=== PATIENT | male | born 1955 | race African-American/Black ===

== ENCOUNTER 2024-11-11 21:10 | Emergency (ER) | payer OTHER ==
[2024-11-11] MEDS ORDERED: SODIUM CHL 0.9% 1000 ML BAG IV ONE (21:11)
[2024-11-11] MEDS ORDERED: DOPAMINE 400 MG/250 ML D5W PREMIX IV ONE (21:11)
[2024-11-11] MEDS ORDERED: EPINEPHrine 1 MG/10 ML SYR IV ONE (21:11)
[2024-11-11] MEDS ORDERED: Calcium Chloride 10% INJ SYR IV ONE (21:11)
[2024-11-11] MEDS ORDERED: D5W 250 ML BAG IV ONE (21:11)
[2024-11-11] MEDS ORDERED: NOREPINEPHRINE BITARTRATE/D5W 4 MG/250 ML KIT IV ONE (21:27)
[2024-11-11] MEDS ORDERED: NA CHLORIDE 0.9% 1,000 ML ONE ×2 (21:37→23:48)
[2024-11-11] MEDS ORDERED: EPINEPHRINE 1 MG/ML VIAL ONE (21:45)
[2024-11-11] MEDS ORDERED: NA CHLORIDE 0.9% 250 ML ONE (21:45)
[2024-11-11] MEDS ORDERED: SODIUM BICARB 50 MEQ/50ML VIAL ONE (22:00)
[2024-11-11] MEDS ORDERED: D5W 1,000 ML IV ONE (22:01)
[2024-11-11] MEDS ORDERED: INSULIN REGULAR (HUMAN) 100 UNIT/ML ONE ×2 (22:02→23:59)
[2024-11-11 22:11] LABS: Absolute Basophils 0.1 K/uL (0-0.5); Absolute Monocytes 0.7 K/uL (0.1-1.3); Hemoglobin 14.9 g/dL (13.6-17.9)
[2024-11-11] MEDS ORDERED: Phenylephrine HCl 10 MG/ML 1 ML VIAL ONE (22:16)
[2024-11-11 22:21] LABS: Absolute Eosinophils 0.1 K/uL (0-0.5); Absolute Lymphocytes (CBC) 3.1 K/uL (0.7-4.9); Absolute Neutrophil 8.1 K/uL (1.8-8.0); Basophils % 0.8 % (0-1.3); Eosinophils % 0.5 % (0-4.4); Hematocrit 47.7 % (39.6-49.0); Lymphocytes % 25.4 % (15.3-44.8); MCH 30.3 pg (27.0-35.0); MCHC 31.2 g/dL (32.0-36.0); MCV 97.1 fL (80-100); MPV 10.7 fL (7.6-11.3); Monocytes % 5.5 % (3.3-12.3); Neutrophils % 67.8 % (41.7-73.7); Nucleated RBC Absolute Count 0.1 (0-0); Nucleated Red Blood Cells % 0.8 % (0-0); Platelets 189 thou/uL (152-406); RBC Red Blood Cell Count 4.91 M/uL (4.33-5.43); Red Cell Distribution Width 14.2 % (12.1-15.2)
[2024-11-11 22:26] LABS: Blood O2 Saturation 78.9 % (92-98.5)
--- NOTE | 2024-11-11 22:26 | RAD REPORT ---
Procedure: Chest Single View HISTORY: Intubation FINDINGS: Endotracheal tube with its tip at the level of the aortic arch. Nasogastric tube is coiled within the gastric fundus. The tip lies near the junction of the gastric f undus and body. It is approximately 4 cm from the GE junction
[2024-11-11 22:27] LABS: PT Prothrombin Time 10.8 SECONDS (9.4-12.5); PTT, Activated Partial Thromb 35.6 SECONDS (24.3-36.9); Protime INR 1.03
[2024-11-11 22:27] LABS: Blood Gas Oxyhemoglobin 77.6 % (94-97); Blood Gas THB 13.4 g/dl (12-18)
[2024-11-11 22:29] LABS: Anion Gap 25.2 mEq/L (5.0-15.0); Potassium 4.2 mEq/L (3.5-5.1); Troponin High Sensitivity 27.7 pg/mL (<58.9)
[2024-11-11] MEDS ORDERED: HYDROCORTISONE SUC 100 MG INJ ONE (22:46)
[2024-11-11] MEDS ORDERED: FAMOTIDINE 20 MG/2 ML VIAL IV ONE (22:47)
[2024-11-11 22:48] LABS: Blood Morphology Comment NOTED (NOT SEEN); Platelet Estimate ADEQ; Polychromasia SLIGHT; White Blood Cell Scan OK (OK)
[2024-11-11 23:41] LABS: SARS-CoV-2 Antigen CONTROL BLUE LINE VIS/BG OK; SARS-CoV-2 Antigen Rapid Res Negative (Negative)
--- NOTE | 2024-11-11 23:58 | EDPHYS ---
Physician Documentation [facility] Name: Joel Walter Age: 69 yrs Sex: Male : 1955 Arrival Date: 11/11/2024 Time: 21:10 Bed 2 Private MD: ED Physician Alek Carlton HPI: 11/11 23:21 This 69 yrs old Black Male presents to ER via EMS with complaints of CPR. jessica 23:21 Preceding the arrest, the patient collapsed. The arrest occurred at home. Pre-hospital jessica course: The arrest was not witnessed by others. Historical: - Allergies: 21:26 No Known Allergies; ha1 - PMHx: 21:26 Diabetes - NIDDM; High Cholesterol; Hypertension; ha1 - Immunization history:: Adult Immunizations unknown. - Infectious Disease History:: unconscious . - Social history:: Smoking status: unknown. ROS: 23:35 Unable to obtain ROS due to patient is on ventilator, sp cpr, jessica Exam: 23:35 Head/Face: Normocephalic, atraumatic. jessica 23:35 Eyes: Pupils: dilated, bilaterally, 23:45 Chest/axilla: Inspection: normal, jessica 23:45 Cardiovascular: Rate: actual rate is 89 bpm, Rhythm: regular, Edema: is not appreciated, JVD: is not appreciated, 23:45 ECG was reviewed by the Attending Physician. Vital Signs: 21:15 BP 52 / 32; Pulse 76; Resp 30; al5 21:19 BP 56 / 31; Pulse 95; Resp 42; Pulse Ox 86% on jhony tube; al5 21:31 Weight 158.76 kg; sa1 21:37 BP 75 / 37; Pulse 89; Resp 18; Temp 100.7(Ca); Pulse Ox 98% on ETT vent; FiO2 100 %; br2 21:50 BP 58 / 33; Pulse 51; Resp 18; Temp 100.9(Ca); Pulse Ox 98% on ETT vent; FiO2 100 %; br2 21:55 BP 65 / 40; Pulse 83; Resp 18; Temp 100.5(Ca); Pulse Ox 100% on ETT vent; FiO2 100 %; br2 22:00 BP 65 / 16; Pulse 91; Resp 18; Temp 100(Ca); Pulse Ox 100% on ETT vent; FiO2 100 %; br2 22:05 BP 76 / 29; Pulse 92; Resp 18; Temp 99.6(Ca); Pulse Ox 100% on ETT vent; FiO2 100 %; br2 22:10 BP 78 / 33; Pulse 92; Resp 16; Temp 99.3(Ca); Pulse Ox 100% on ETT vent; FiO2 100 %; br2 22:15 BP 78 / 32; Pulse 91; Resp 18; Temp 99(Ca); Pulse Ox 100% on ETT vent; FiO2 100 %; br2 22:20 BP 78 / 34; Pulse 91; Resp 18; Temp 98.8(Ca); Pulse Ox 100% on ETT vent; FiO2 100 %; br2 22:25 BP 81 / 36; Pulse 89; Resp 18; Temp 98.6(Ca); Pulse Ox 100% on ETT vent; FiO2 100 %; br2 22:30 BP 83 / 37; Pulse 87; Resp 18; Temp 98.4(Ca); Pulse Ox 100% on ETT vent; FiO2 100 %; br2 22:35 BP 81 / 36; Pulse 86; Resp 18; Temp 98.3(Ca); Pulse Ox 100% on ETT vent; FiO2 100 %; br2 22:40 BP 82 / 37; Pulse 85; Resp 18; Temp 98.2(Ca); Pulse Ox 100% on ETT vent; FiO2 100 %; br2 22:45 BP 83 / 48; Pulse 82; Resp 18; Temp 98.1(Ca); Pulse Ox 100% on ETT vent; FiO2 100 %; br2 22:50 BP 79 / 36; Pulse 84; Resp 18; Temp 98(Ca); Pulse Ox 100% on ETT vent; FiO2 100 %; br2 22:55 BP 83 / 38; Pulse 84; Resp 18; Temp 97.9(Ca); Pulse Ox 100% on ETT vent; FiO2 100 %; br2 23:00 BP 81 / 37; Pulse 84; Resp 18; Temp 97.9(Ca); Pulse Ox 100% on ETT vent; FiO2 100 %; br2 23:05 BP 80 / 37; Pulse 85; Resp 18; Temp 97.8(Ca); Pulse Ox 100% on ETT vent; FiO2 100 %; br2 23:10 BP 80 / 37; Pulse 84; Resp 18; Temp 97.8(Ca); Pulse Ox 100% on ETT vent; FiO2 100 %; br2 23:15 BP 79 / 34; Pulse 83; Resp 18; Temp 97.8(Ca); Pulse Ox 100% on ETT vent; FiO2 100 %; br2 23:20 BP 77 / 35; Pulse 82; Resp 18; Temp 97.7(Ca); Pulse Ox 100% on ETT vent; FiO2 100 %; br2 23:25 BP 76 / 36; Pulse 82; Resp 18; Temp 97.7(Ca); Pulse Ox 100% on ETT vent; FiO2 100 %; br2 23:30 BP 83 / 48; Pulse 101; Resp 18; Temp 97.7(Ca); Pulse Ox 100% on ETT vent; FiO2 100 %; br2 23:35 BP 83 / 47; Pulse 98; Resp 18; Temp 97.6(Ca); Pulse Ox 100% on ETT vent; FiO2 100 %; br2 23:40 BP 79 / 47; Pulse 98; Resp 18; Temp 97.6(Ca); Pulse Ox 100% on ETT vent; FiO2 100 %; br2 23:45 BP 72 / 38; Pulse 99; Resp 18; Temp 97.6(Ca); Pulse Ox 100% on ETT vent; FiO2 100 %; br2 23:50 BP 69 / 48; Pulse 98; Resp 18; Temp 97.6(Ca); Pulse Ox 100% on ETT vent; FiO2 100 %; br2 23:55 BP 68 / 48; Pulse 100; Resp 18; Temp 97.6(Ca); Pulse Ox 100% on ETT vent; FiO2 100 %; br2 11/12 00:00 BP 60 / 34; Pulse 98; Resp 18; Temp 97.6(Ca); Pulse Ox 100% on ETT vent; FiO2 100 %; al5 00:05 BP 59 / 30; Pulse 105; Resp 18; Temp 97.6(Ca); Pulse Ox 100% on ETT vent; FiO2 100 %; al5 00:10 BP 64 / 51; Pulse 108; Resp 18; Temp 97.6(Ca); Pulse Ox 99% on ETT vent; FiO2 100 %; al5 00:15 BP 69 / 40; Pulse 108; Resp 18; Temp 97.6(Ca); Pulse Ox 99% on ETT vent; FiO2 100 %; al5 00:20 BP 70 / 32; Pulse 108; Resp 18; Temp 97.5(Ca); Pulse Ox 99% on ETT vent; FiO2 100 %; al5 00:25 BP 67 / 36; Pulse 111; Resp 18; Temp 97.4(Ca); Pulse Ox 99% on ETT vent; FiO2 100 %; al5 00:30 BP 67 / 32; Pulse 108; Resp 18; Temp 97.4(Ca); Pulse Ox 99% on ETT vent; FiO2 100 %; al5 00:35 BP 67 / 39; Pulse 107; Resp 18; Temp 97.3(Ca); Pulse Ox 100% on ETT vent; FiO2 100 %; al5 00:40 BP 66 / 52; Pulse 110; Resp 18; Temp 97.3(Ca); Pulse Ox 99% on ETT vent; FiO2 100 %; al5 00:45 BP 68 / 50; Pulse 108; Resp 18; Temp 97.2(Ca); Pulse Ox 99% on ETT vent; FiO2 100 %; al5 00:50 BP 68 / 38; Pulse 107; Resp 18; Temp 97.2(Ca); Pulse Ox 100% on ETT vent; FiO2 100 %; al5 00:55 BP 66 / 35; Pulse 108; Resp 18; Temp 97.1(Ca); Pulse Ox 99% on ETT vent; FiO2 100 %; al5 01:00 BP 66 / 40; Pulse 107; Resp 18; Temp 97.1(Ca); Pulse Ox 99% on ETT vent; FiO2 100 %; al5 01:05 BP 68 / 37; Pulse 106; Resp 18; Temp 97(Ca); Pulse Ox 100% on ETT vent; FiO2 100 %; al5 01:10 BP 61 / 38; Pulse 106; Resp 18; Temp 97(Ca); Pulse Ox 100% on ETT vent; FiO2 100 %; al5 01:15 BP 75 / 41; Pulse 106; Resp 18; Temp 97(Ca); Pulse Ox 99% on ETT vent; FiO2 100 %; al5 01:20 BP 73 / 40; Pulse 105; Resp 18; Temp 97(Ca); Pulse Ox 99% on ETT vent; FiO2 100 %; al5 01:25 BP 77 / 43; Pulse 103; Resp 18; Temp 96.9(Ca); Pulse Ox 99% on ETT vent; FiO2 100 %; al5 01:30 BP 72 / 43; Pulse 102; Resp 18; Temp 96.9(Ca); Pulse Ox 99% on ETT vent; FiO2 100 %; al5 01:35 BP 72 / 43; Pulse 101; Resp 18; Temp 96.9(Ca); Pulse Ox 100% on ETT vent; FiO2 100 %; al5 01:40 BP 74 / 43; Pulse 100; Resp 18; Temp 96.9(Ca); Pulse Ox 99% on ETT vent; FiO2 100 %; al5 01:45 BP 75 / 40; Pulse 102; Resp 18; Temp 97(Ca); Pulse Ox 100% on ETT vent; FiO2 100 %; al5 MDM: 11/11 21:54 Medical Screening Exam initiated [facility] 23:53 Differential diagnosis: arrythmia, cardiac arrest, respiratory arrest, traumatic jessica injury, overdose, asphyxiation, renal failure. Data reviewed: vital signs, nurses notes, EMS record, lab test result(s), EKG, radiologic studies, plain films. Consideration of Admission/Observation Escalation of care including admission/observation considered. I considered the following discharge prescriptions or medication management in the emergency department Medications were administered in the Emergency Department. See MAR. Independent interpretation of the following test(s) in the Emergency Department EKG: See my EKG interpretation above. Test considered but Not performed: Ultrasound no abd usg. Historians other than the Patient: EMS: ems well informed. Care significantly affected by the following chronic conditions: Diabetes, Hypertension, Obesity, high cholesterol. Counseling: I had a detailed discussion with the patient and/or guardian regarding the historical points, exam findings, and any diagnostic results supporting the discharge/admit diagnosis, lab results, radiology results, the need to transfer to another facility, for higher level of care, [facility] does not immediately have the required specialist. 11/12 00:06 Post IV fluid administration reassessment for Sepsis: Client prescribed 30 mL/kg IVF. [facility] Sepsis focused reassessment complete. 11/11 21:39 Order name: Glucose, Ancillary Testing; Complete Time: 22:30 EDMS 11/11 21:50 Order name: Basic Metabolic Panel; Complete Time: 22:56 11/11 21:50 Order name: CBC with Diff; Complete Time: 22:56 11/11 21:50 Order name: Troponin HS; Complete Time: 22:56 11/11 21:50 Order name: Blood Culture Adult (2) 11/11 21:50 Order name: Lactate w/ 2H reflex if indic.; Complete Time: 22:56 11/11 21:50 Order name: Protime (+inr); Complete Time: 22:30 11/11 21:50 Order name: Ptt, Activated; Complete Time: 22:30 11/11 21:50 Order name: ABG 11/11 21:58 Order name: SARS RAPID; Complete Time: 01:07 [facility] 11/11 21:58 Order name: Flu; Complete Time: : [facility] 11/11 22:41 Order name: Ghost Lactate-NO COLLECT Timer; Complete Time: 01:07 [facility] 11/11 22:46 Order name: CBC Smear Scan; Complete Time: 22:56 [facility] 11/11 23:21 Order name: Glucose; Complete Time: 01:07 [facility] 11/12 00:20 Order name: Glucose, Ancillary Testing; Complete Time: 01:07 [facility] 11/12 00:48 Order name: ABG [facility] 11/12 01:41 Order name: Glucose, Ancillary Testing [facility] 11/12 02:04 Order name: Lactate Sepsis 2 HR Follow-up [facility] 11/12 02:26 Order name: Glucose, Ancillary Testing [facility] 11/11 21:50 Order name: XRAY Chest (1 view); Complete Time: 22:30 11/11 21:50 Order name: Cardiac monitoring; Complete Time: 23:16 11/11 21:50 Order name: EKG - Nurse/Tech; Complete Time: 22:19 11/11 21:50 Order name: IV Saline Lock; Complete Time: 23:16 11/11 21:50 Order name: Labs collected and sent; Complete Time: 22:19 11/11 21:50 Order name: O2 Per Protocol; Complete Time: 22:19 11/11 21:50 Order name: O2 Sat Monitoring; Complete Time: 22:19 11/11 21:50 Order name: Accucheck; Complete Time: 22:19 11/11 21:50 Order name: Cath; Complete Time: 23:16 11/11 21:50 Order name: IV Saline Lock - Large Bore; Complete Time: 23:16 11/11 21:50 Order name: Vital Signs; Complete Time: 23:16 11/11 21:58 Order name: Central Line Kit; Complete Time: 22:24 jessica EC/24 23:45 Rate is 102 beats/min. Rhythm is regular. QRS [place] is Normal. [place] interval is normal. jessica QRS interval is normal. QT interval is normal. No Q waves. T waves are Normal. No ST changes noted. Clinical impression: NSR w/ Non-specific ST/T Changes and No evidence of ischemia. Interpreted by me. Reviewed by me. Administered Medications: 11/12 00:47 Discontinued: Insulin Drip - (insulin regular human ivp 100 units, ns 0.9% 100 ml) IV jessica at 5 units/hr continuous; Standard concentration 1unit/ml; Dose for DKA is 0.1 units/kg/hr 11/11 21:17 Drug: NS 0.9% IV (30 ml/kg) 30 ml/kg IV at bolus once; Sepsis Protocol; to be given as ha1 a bolus over 90 minutes Route: IV; Rate: bolus; Site: right antecubital; 11/12 03:16 Follow up: Response: No adverse reaction; IV Status: Completed infusion; IV Intake: al5 4000ml 11/11 21:17 Drug: EPINEPHrine 0.1mg/mL 1:10,000 1 mg IVP once Route: IVP; Site: right antecubital; [facility] 11/12 03:07 Follow up: Response: No adverse reaction 11/11 21:18 Drug: Sodium Bicarbonate 1 amp IVP once; (50 mL); equals 50 mEq Route: IVP; Site: right [facility] antecubital; 11/12 03:07 Follow up: Response: No adverse reaction 11/11 21:21 Drug: EPINEPHrine 0.1mg/mL 1:10,000 1 mg IVP once Route: IVP; Site: right antecubital; [facility] 11/12 03:07 Follow up: Response: No adverse reaction 11/11 21:30 Drug: Norepinephrine IV 0.1 mcg/kg/min IV at calculated rate See Administration ha1 Instructions; (Standard concentration 4 mg / 250 mL D5W); Recommended max rate 3 mcg/kg/min; Titrate 0.05 mcg/kg/min as often as every 5 minutes to achieve goal (see titration policy); Goal parameter MAP greater than 65 mmHg. Route: IV; Rate: calculated rate; Site: right femoral; 11/12 03:15 Follow up: Response: No adverse reaction; IV Status: Infusion continued upon transfer 11/11 21:41 Drug: EPINEPHrine 0.1mg/mL 1:10,000 1 mg IVP once Route: IVP; Site: right femoral; 11/12 03:06 Follow up: Response: No adverse reaction 11/11 21:42 Drug: Calcium Chloride IVP 1 grams IVP once Route: IVP; Site: right antecubital; 11/12 03:06 Follow up: Response: No adverse reaction 11/11 21:58 Drug: DOPamine IV (400mg/250mL Premix) 5 mcg/kg/min IV at calculated rate See ha1 Administration Instructions; Recommended max rate 20 mcg/kg/min; Titrate 2.5 mcg/kg/min as often as every 5 minutes to achieve goal (see titration policy); Goal parameter MAP greater than 65 mmHg. [*Low doses 1 to 4 mcg/kg/min may result in hypotension, decreased SVR*] Route: IV; Rate: calculated rate; Site: right femoral; 11/12 03:09 Follow up: Response: No adverse reaction 03:10 Follow up: IV Status: Infusion continued upon transfer 11/11 21:59 Drug: Sodium Bicarbonate IVP 1 amp IVP once; (50 mL); equals 50 mEq Route: IVP; Site: [facility] right femoral11/12 03:14 Follow up: Response: No adverse reaction 11/11 21:59 Drug: Sodium Bicarbonate IVP 1 amp IVP once; (50 mL); equals 50 mEq Route: IVP; Site: [facility] right femoral; 11/12 03:14 Follow up: Response: No adverse reaction 11/11 21:59 Drug: Sodium Bicarbonate 1 amp IVP once; (50 mL); equals 50 mEq Route: IVP; Site: right [address] [place] [address]; 11/12 03:06 Follow up: Response: No adverse reaction 11/11 22:05 Drug: D5W IV 1000 ml, Sodium Bicarbonate IVP 150 mEq IV at 125 ml/hr continuous Route: al5 IV; Rate: 125 ml/hr; Site: right antecubital; 11/12 03:10 Follow up: Response: No adverse reaction; IV Status: Infusion continued upon transfer 11/11 22:05 Drug: Sodium Bicarbonate 1 amp IVP once; (50 mL); equals 50 mEq Route: IVP; Site: right ha1 femoral; 11/12 03:06 Follow up: Response: No adverse reaction 11/11 22:06 Drug: Insulin Regular Human IVP 10 units IVP once {Co-Signature: ha1 (Dione Aragon RN).} Route: IVP; Site: right antecubital; 11/12 03:15 Follow up: Response: No adverse reaction; No change in condition 11/11 22:24 Drug: Phenylephrine IV 0.5 mcg/kg/min IV at calculated rate See Administration al5 Instructions; (Standard concentration 50 mg / 250 mL D5W); Recommended max rate 5 mcg/kg/min; Max rate for cardiogenic shock 10 mcg/kg/min; Titrate 0.1 mcg/kg/min as often as q5 minutes to achieve goal (see titration policy); Goal parameter MAP greater than 65 mmHg. Route: IV; Rate: calculated rate; Site: right femoral; 22:26 Follow up: Response: No adverse reaction; Blood pressure is unchanged; Rate change 2 al5 mcg/kg/min 22:40 Follow up: Response: No adverse reaction; Blood pressure is unchanged; Rate change 3 al5 mcg/kg/min 23:00 Follow up: Response: No adverse reaction; Blood pressure is unchanged; Rate change 5 al5 mcg/kg/min 11/12 03:08 Follow up: Response: No adverse reaction; IV Status: Infusion continued upon transfer 11/11 22:51 Drug: Famotidine IVP 40 mg IVP once; dilute with 10 mL 0.9% NaCl; give over 2 minutes al5 Route: IVP; Site: left antecubital; 11/12 00:43 Follow up: Response: No adverse reaction 11/11 22:51 Drug: Solu-CORTEF IVP 100 mg IVP once Route: IVP; Site: left antecubital; al5 11/12 00:43 Follow up: Response: No adverse reaction al5 00:16 Drug: Insulin Drip - (Insulin Regular Human IVP 100 units, NS 0.9% IV 100 ml) IV at 5 al5 units/hr continuous; Standard concentration 1unit/ml; Dose for DKA is 0.1 units/kg/hr {Co-Signature: br2 (Letha Trammell RN).} Route: IV; Rate: 5 units/hr; Site: right femoral; 03:08 Follow up: Response: No adverse reaction; IV Status: Order to discontinue infusion al5 00:54 Drug: Insulin Drip - (Insulin Regular Human IVP 100 units, NS 0.9% IV 100 ml) IV at 7 al5 units/hr continuous; Standard concentration 1unit/ml; Dose for DKA is 0.1 units/kg/hr {Co-Signature: br2 (Letha Trammell RN).} Route: IV; Rate: 7 units/hr; Site: right femoral; 03:08 Follow up: Response: No adverse reaction; IV Status: Infusion continued upon transfer al5 01:24 Not Given (Duplicate Order): insulin regular human10 units IVP once al5 01:46 Drug: Albumin IVPB 25 grams 100 ml IVPB once; (Note: Albumin 25% concentration) Volume: al5 100 ml; Route: IVPB; Site: left antecubital; 02:40 Follow up: Response: No adverse reaction; IV Status: Completed infusion; IV Intake: al5 100ml 01:57 Drug: NS 0.9% IV 1000 ml IV at 1000 ml once; to be given as a bolus over 60 minutes ha1 Route: IV; Rate: 1000 ml; Site: right antecubital; 03:07 Follow up: Response: No adverse reaction; IV Status: Completed infusion; IV Intake: al5 1000ml 03:15 Not Given (Physician Discretion): piperacillin-tazobactam3.375 grams IVPB once over 60 al5 mins; (mix in NS 100 mL) Disposition Summary: 11/11/24 23:58 Transfer Ordered Notes: Transfer Location: [facility] jessica Reason: Higher level of care jessica Condition: Critical jessica Problem: new jessica Symptoms: have improved jessica Accepting Physician: to [facility](11/12/24 03:35) ha1 Diagnosis - Acute respiratory failure with hypoxia - intubated jessica - Acute respiratory failure with hypercapnia jessica - Acute kidney failure, unspecified jessica - Type 2 diabetes mellitus with ketoacidosis with coma jessica - Morbid (severe) obesity with alveolar hypoventilation jessica - Elevated white blood cell count, unspecified jessica - Acidosis jessica - Severe sepsis with septic shock jessica - Hypotension, unspecified jessica Forms: - Medication Reconciliation Form jessica - SBAR form jessica Signatures: Dispatcher [employer] EDRoshni Burleson, RN Alek Iverson MD MD cha Ayala, Heidy RN RN ha1 Soraida Gandhi RN RN al5 Dione Aragon RN ha1 Letha Trammell RN br2 Corrections: (The following items were deleted from the chart) 11/11 21:51 21:50 BASIC METABOLIC PANEL+C.LAB.BRZ ordered. EDMS EDMS 21:51 21:50 CBC+H.LAB.BRZ ordered. EDMS EDMS 21:51 21:50 Troponin High Sensitivity+C.LAB.BRZ ordered. EDMS EDMS 21:51 21:50 BLOOD CULTURE*+BA.LAB.BRZ ordered. EDMS EDMS 21:51 21:50 LACTATE+C.LAB.BRZ ordered. EDMS EDMS 21:51 21:50 PROTIME (+INR)+COAG.LAB.BRZ ordered. EDMS EDMS 21:51 21:50 PTT, ACTIVATED+COAG.LAB.BRZ ordered. EDMS EDMS 21:51 21:50 Urinalysis+U.LAB.BRZ ordered. EDMS EDMS 21:51 21:51 Chest Single View+RAD.RAD.BRZ ordered. EDMS EDMS 11/12 00:01 11/11 21:56 Head C Spine Cap Wo Con+CT.RAD.BRZ ordered. EDMS EDMS 11/12 00:07 11/11 23:58 to [facility] jessica jessica 11/12 00:49 00:07 to [facility] jessica jessica 01:31 00:00 Chest Abd Pelvis Wo Con ordered. EDMS EDMS 01:41 00:49 to [facility] jessica jessica 02:49 00:01 Head C Spine Mpr Wo Con ordered. EDMS EDMS 02:49 01:31 Chest Abd Pelvis Wo Con ordered. EDMS EDMS 03:35 01:41 to [facility] ha1
--- NOTE | 2024-11-11 23:58 | ER ---
Nurse's Notes [facility] Name: Joel Walter Age: 69 yrs Sex: Male : 1955 Arrival Date: 11/11/2024 Time: 21:10 Bed 2 Private MD: Diagnosis: Acute respiratory failure with hypoxia-intubated;Acute respiratory failure with hypercapnia;Acute kidney failure, unspecified;Type 2 diabetes mellitus with ketoacidosis with coma;Morbid (severe) obesity with alveolar hypoventilation;Elevated white blood cell count, unspecified;Acidosis;Severe sepsis with septic shock;Hypotension, unspecified Presentation: 11/11 21:10 Chief complaint: EMS states: Was taking a shower and went unconscious. On arrival ha1 asystole, no pulse. Chest compression started. 21:15 Compressions began prior to arrival. ha1 21:15 Care prior to arrival: Assisted ventilation, Oral intubation, CPR manually. ha1 21:26 Method Of Arrival: EMS: [facility] ha1 21:26 Coronavirus screen: At this time, unable to obtain information related to travel ha1 outside the [place] Ebola Screen: No symptoms or risks identified at this time. Initial Sepsis Screen: Does the patient meet any 2 criteria? Temp <36.0*C (96.8*F)) or > 38.3*C (100.9*F). Systolic BP < 90 mmHg. Yes Does the patient have a suspected source of infection? No. Patient's initial sepsis screen is negative. Risk Assessment: Do you want to hurt yourself or someone else? Unable to obtain. Onset of symptoms was November 11, 2024. 21:26 Acuity: JOSHUA 1 ha1 Triage Assessment: 21:26 General: Appears Behavior is unresponsive. Pain: Unable to use pain scale. FLACC scale ha1 score is 0 out of 10. Neuro: Level of Consciousness is unresponsive, Oriented to none. Cardiovascular: Capillary refill is > 3 seconds Rhythm is PEA. Respiratory: Airway via oral intubation Ventilator assessment:. GI: Abdomen is round obese. Historical: - Allergies: : No Known Allergies; ha1 - PMHx: :26 Diabetes - NIDDM; High Cholesterol; Hypertension; ha1 - Immunization history:: Adult Immunizations unknown. - Infectious Disease History:: unconscious . - Social history:: Smoking status: unknown. Screenin/25 02:02 [facility] ED Fall Risk Assessment (Adult). Abuse screen: Denies threats or abuse. Denies ha1 injuries from another. Nutritional screening: No deficits noted. Tuberculosis screening: No symptoms or risk factors identified. 02:56 [facility] ED Fall Risk Assessment (Adult) History of falling in the last 3 months, br2 including since admission Yes- physiologic fall (2 pts) Confusion or Disorientation No (0 pts) Intoxicated or Sedated No (0 pts) Impaired Gait Yes (1 pt) Mobility Assist Device Used Yes (1 pt) Altered Elimination Yes (1 pt) Score/Fall Risk Level 3 or more points = High Risk Oriented to surroundings, Maintained a safe environment, Hourly rounding (assess needs \T\ fall precautionary measures) done. Assessment: 11/11 21:15 CPR assessment: unresponsive, pupils fixed \T\ dilated, no respiratory effort, intubated, ha1 mechanical ventilation, pulses absent w/ compressions. Cardiac rhythm is asystole. Neuro: Level of Consciousness is unresponsive. Cardiovascular: Rhythm is asystole. Respiratory: Airway via oral intubation. 21:15 General: CPR CONTINUE . ha1 21:19 Reassessment: PULSE CHECK. Cardiovascular: Pulses are palpable in left carotid pulse ha1 Rhythm is ventricular tachycardia. 21:22 Reassessment: PULSE CHECK. PEA. CPR STARTED. ha1 21:23 Reassessment: calcium chloride given IVP at this time. al5 21:24 Cardiovascular: Pulses are palpable in left carotid pulse Rhythm is ventricular ha1 tachycardia. 21:30 General: Appears obese, Behavior is unresponsive. Pain: Unable to use pain scale. al5 Patient is unresponsive. Neuro: Level of Consciousness is unresponsive, Oriented to none Pupils are Pupil Size: 5mm fixed, dilated, non-reactive. Cardiovascular: Heart tones S1 S2 Patient's skin is warm and dry. Rhythm is sinus tachycardia. Respiratory: Airway via oral intubation Respiratory effort is even, Respiratory pattern is regular, symmetrical, Ventilator assessment: ET Tube: 7.5 26 cm at teeth Tidal Volume: 500 Respiratory Rate: 18 FiO2: 100%. PEEP: 5 Breath sounds are clear bilaterally. GI: Abdomen is obese, : No signs and/or symptoms were reported regarding the genitourinary system. EENT: No signs and/or symptoms were reported regarding the EENT system. Derm: Skin is intact, is healthy with good turgor, Skin is normal. Musculoskeletal: No signs and/or symptoms reported regarding the musculoskeletal system. 21:41 : 16 Fr. temperature probe todd catheter to gravity drainage with no urinary output. al5 22:00 Reassessment: No changes from previously documented assessment. al5 22:00 Respiratory: Airway via oral intubation Respiratory effort is even, Respiratory pattern al5 is regular, symmetrical, Breath sounds are clear bilaterally. 23:00 Reassessment: No changes from previously documented assessment. al5 23:00 Respiratory: Airway via oral intubation Respiratory effort is even, Respiratory pattern al5 is regular, symmetrical, Breath sounds are clear bilaterally. 11/12 00:00 Reassessment: No changes from previously documented assessment. Respiratory: Airway via al5 oral intubation Respiratory effort is even, Respiratory pattern is regular, symmetrical, Breath sounds are clear bilaterally. 01: Reassessment: No changes from previously documented assessment. Respiratory: Airway via al5 oral intubation Respiratory effort is even, Respiratory pattern is regular, symmetrical, Breath sounds are clear bilaterally. 01:49 Reassessment: life flight arrived for transport for patient to [facility]. 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 Vital Signs: 11/11 21:15 BP 52 / 32; Pulse 76; Resp 30; al5 21:19 BP 56 / 31; Pulse 95; Resp 42; Pulse Ox 86% on jhony tube; al5 21:31 Weight 158.76 kg; sa1 21:37 BP 75 / 37; Pulse 89; Resp 18; Temp 100.7(Ca); Pulse Ox 98% on ETT vent; FiO2 100 %; br2 21:50 BP 58 / 33; Pulse 51; Resp 18; Temp 100.9(Ca); Pulse Ox 98% on ETT vent; FiO2 100 %; br2 21:55 BP 65 / 40; Pulse 83; Resp 18; Temp 100.5(Ca); Pulse Ox 100% on ETT vent; FiO2 100 %; br2 22:00 BP 65 / 16; Pulse 91; Resp 18; Temp 100(Ca); Pulse Ox 100% on ETT vent; FiO2 100 %; br2 22:05 BP 76 / 29; Pulse 92; Resp 18; Temp 99.6(Ca); Pulse Ox 100% on ETT vent; FiO2 100 %; br2 22:10 BP 78 / 33; Pulse 92; Resp 16; Temp 99.3(Ca); Pulse Ox 100% on ETT vent; FiO2 100 %; br2 22:15 BP 78 / 32; Pulse 91; Resp 18; Temp 99(Ca); Pulse Ox 100% on ETT vent; FiO2 100 %; br2 22:20 BP 78 / 34; Pulse 91; Resp 18; Temp 98.8(Ca); Pulse Ox 100% on ETT vent; FiO2 100 %; br2 22:25 BP 81 / 36; Pulse 89; Resp 18; Temp 98.6(Ca); Pulse Ox 100% on ETT vent; FiO2 100 %; br2 22:30 BP 83 / 37; Pulse 87; Resp 18; Temp 98.4(Ca); Pulse Ox 100% on ETT vent; FiO2 100 %; br2 22:35 BP 81 / 36; Pulse 86; Resp 18; Temp 98.3(Ca); Pulse Ox 100% on ETT vent; FiO2 100 %; br2 22:40 BP 82 / 37; Pulse 85; Resp 18; Temp 98.2(Ca); Pulse Ox 100% on ETT vent; FiO2 100 %; br2 22:45 BP 83 / 48; Pulse 82; Resp 18; Temp 98.1(Ca); Pulse Ox 100% on ETT vent; FiO2 100 %; br2 22:50 BP 79 / 36; Pulse 84; Resp 18; Temp 98(Ca); Pulse Ox 100% on ETT vent; FiO2 100 %; br2 22:55 BP 83 / 38; Pulse 84; Resp 18; Temp 97.9(Ca); Pulse Ox 100% on ETT vent; FiO2 100 %; br2 23:00 BP 81 / 37; Pulse 84; Resp 18; Temp 97.9(Ca); Pulse Ox 100% on ETT vent; FiO2 100 %; br2 23:05 BP 80 / 37; Pulse 85; Resp 18; Temp 97.8(Ca); Pulse Ox 100% on ETT vent; FiO2 100 %; br2 23:10 BP 80 / 37; Pulse 84; Resp 18; Temp 97.8(Ca); Pulse Ox 100% on ETT vent; FiO2 100 %; br2 23:15 BP 79 / 34; Pulse 83; Resp 18; Temp 97.8(Ca); Pulse Ox 100% on ETT vent; FiO2 100 %; br2 23:20 BP 77 / 35; Pulse 82; Resp 18; Temp 97.7(Ca); Pulse Ox 100% on ETT vent; FiO2 100 %; br2 23:25 BP 76 / 36; Pulse 82; Resp 18; Temp 97.7(Ca); Pulse Ox 100% on ETT vent; FiO2 100 %; br2 23:30 BP 83 / 48; Pulse 101; Resp 18; Temp 97.7(Ca); Pulse Ox 100% on ETT vent; FiO2 100 %; br2 23:35 BP 83 / 47; Pulse 98; Resp 18; Temp 97.6(Ca); Pulse Ox 100% on ETT vent; FiO2 100 %; br2 23:40 BP 79 / 47; Pulse 98; Resp 18; Temp 97.6(Ca); Pulse Ox 100% on ETT vent; FiO2 100 %; br2 23:45 BP 72 / 38; Pulse 99; Resp 18; Temp 97.6(Ca); Pulse Ox 100% on ETT vent; FiO2 100 %; br2 23:50 BP 69 / 48; Pulse 98; Resp 18; Temp 97.6(Ca); Pulse Ox 100% on ETT vent; FiO2 100 %; br2 23:55 BP 68 / 48; Pulse 100; Resp 18; Temp 97.6(Ca); Pulse Ox 100% on ETT vent; FiO2 100 %; br2 11/12 00:00 BP 60 / 34; Pulse 98; Resp 18; Temp 97.6(Ca); Pulse Ox 100% on ETT vent; FiO2 100 %; al5 00:05 BP 59 / 30; Pulse 105; Resp 18; Temp 97.6(Ca); Pulse Ox 100% on ETT vent; FiO2 100 %; al5 00:10 BP 64 / 51; Pulse 108; Resp 18; Temp 97.6(Ca); Pulse Ox 99% on ETT vent; FiO2 100 %; al5 00:15 BP 69 / 40; Pulse 108; Resp 18; Temp 97.6(Ca); Pulse Ox 99% on ETT vent; FiO2 100 %; al5 00:20 BP 70 / 32; Pulse 108; Resp 18; Temp 97.5(Ca); Pulse Ox 99% on ETT vent; FiO2 100 %; al5 00:25 BP 67 / 36; Pulse 111; Resp 18; Temp 97.4(Ca); Pulse Ox 99% on ETT vent; FiO2 100 %; al5 00:30 BP 67 / 32; Pulse 108; Resp 18; Temp 97.4(Ca); Pulse Ox 99% on ETT vent; FiO2 100 %; al5 00:35 BP 67 / 39; Pulse 107; Resp 18; Temp 97.3(Ca); Pulse Ox 100% on ETT vent; FiO2 100 %; al5 00:40 BP 66 / 52; Pulse 110; Resp 18; Temp 97.3(Ca); Pulse Ox 99% on ETT vent; FiO2 100 %; al5 00:45 BP 68 / 50; Pulse 108; Resp 18; Temp 97.2(Ca); Pulse Ox 99% on ETT vent; FiO2 100 %; al5 00:50 BP 68 / 38; Pulse 107; Resp 18; Temp 97.2(Ca); Pulse Ox 100% on ETT vent; FiO2 100 %; al5 00:55 BP 66 / 35; Pulse 108; Resp 18; Temp 97.1(Ca); Pulse Ox 99% on ETT vent; FiO2 100 %; al5 01:00 BP 66 / 40; Pulse 107; Resp 18; Temp 97.1(Ca); Pulse Ox 99% on ETT vent; FiO2 100 %; al5 01:05 BP 68 / 37; Pulse 106; Resp 18; Temp 97(Ca); Pulse Ox 100% on ETT vent; FiO2 100 %; al5 01:10 BP 61 / 38; Pulse 106; Resp 18; Temp 97(Ca); Pulse Ox 100% on ETT vent; FiO2 100 %; al5 01:15 BP 75 / 41; Pulse 106; Resp 18; Temp 97(Ca); Pulse Ox 99% on ETT vent; FiO2 100 %; al5 01:20 BP 73 / 40; Pulse 105; Resp 18; Temp 97(Ca); Pulse Ox 99% on ETT vent; FiO2 100 %; al5 01:25 BP 77 / 43; Pulse 103; Resp 18; Temp 96.9(Ca); Pulse Ox 99% on ETT vent; FiO2 100 %; al5 01:30 BP 72 / 43; Pulse 102; Resp 18; Temp 96.9(Ca); Pulse Ox 99% on ETT vent; FiO2 100 %; al5 01:35 BP 72 / 43; Pulse 101; Resp 18; Temp 96.9(Ca); Pulse Ox 100% on ETT vent; FiO2 100 %; al5 01:40 BP 74 / 43; Pulse 100; Resp 18; Temp 96.9(Ca); Pulse Ox 99% on ETT vent; FiO2 100 %; al5 01:45 BP 75 / 40; Pulse 102; Resp 18; Temp 97(Ca); Pulse Ox 100% on ETT vent; FiO2 100 %; al5 ED Course: 11/11 21:15 Client placed on continuous cardiac and pulse oximetry monitoring. NIBP monitoring ha1 applied. nurse monitoring on. 21:15 Patient has correct armband on for positive identification. Placed in gown. Bed in low ha1 position. Call light in reach. Side rails up X 1. 21:16 Inserted saline lock: 18 gauge antecubital area, using aseptic technique. Flushed with ha1 10 mL NS. 21:17 Patient has correct armband on for positive identification. Fall risk band placed. Bed ha1 in low position. Call light in reach. Side rails up X2. 21:26 Patient arrived in ED. ha1 21:30 Assisted provider with central line placement. Set up central line tray. Triple lumen ha1 line placed in right femoral. Line placed by Alek Carlton MD Placement verified by blood return, Dressed with Tape, Tegaderm, Blood was collected. Patient tolerated well. Time-out/Briefing performed prior to start of procedure? Yes. Was handwashing/sanitizing done immediately prior to procedure? Yes. Was patient positioned to in a way to prevent air embolism? Yes. Was procedure site sterilized? Yes, with chlorhexidine. Was the site allowed to dry? Yes. Was local anesthetic and/or sedation utilized? Yes. During the procedure, did the Practitioner(s) maintain a sterile field? Yes. Was blood aspirated from each lumen? Yes. 21:30 Assisted provider with intubation using 7.5 mm ETT via oral route. ET tube secured at ha1 26cm at the teeth. Set up intubation tray. Intubated by Alek Carlton MD Placement verified by CO2 detector w/ + color change, auscultating bilateral breath sounds, End-tidal CO2 montioring CXR, Patient tolerated well. 21:35 Inserted saline lock: 18 gauge in left forearm, using aseptic technique. Blood ha1 collected. Flushed with 10 mL NS. 21:40 One-on-one care X 15 minutes. ha1 21:40 Todd cath inserted, using sterile technique, 16 Fr., by ED staff, balloon inflated, to ha1 gravity drainage, Patient tolerated well. 21:54 Alek Carlton MD is Attending Physician. jessica 22:00 One-on-one care X 30 minutes. ha1 22:20 Radiology exam delayed due to pt was being worked on. az 22:23 XRAY Chest (1 view) In Process Unspecified. EDMS 22:30 One-on-one care X 30 minutes. ha1 22:38 Notified ED physician of a critical lab result(s). Blood glucose 454 Lactic acid 22.2. kl 23:13 Triage completed. ha1 23:17 Soraida Gandhi, RN is Primary Nurse. al5 23:30 One-on-one care X 30 minutes. ha1 23:35 called [facility] for Transfer. sp 11/12 00:00 Provided Education on: EDUCATION WAS PROVIDED TO FAMILY MEMBERS ON THE PLAN OF CARE . ha1 00:44 0044 [facility] called to deny transfer no ICU beds at any location. sp 00:56 called [facility] for Transfer. sp 00:56 called [facility] for transfer. sp 01:10 Dr. England at [facility] accepted transfer. ICU 8B bed 830. Report #[id number]. Admin sp approval at 0139 by Reta Villavicencio. 01:16 [facility] accepted pt. sp 02:40 One-on-one care X 360 minutes. al5 02:43 Patient transferred, IV remains in place. ha1 Administered Medications: 00:47 Discontinued: Insulin Drip - (insulin regular human ivp 100 units, ns 0.9% 100 ml) IV jessica at 5 units/hr continuous; Standard concentration 1unit/ml; Dose for DKA is 0.1 units/kg/hr 11/11 21:17 Drug: NS 0.9% IV (30 ml/kg) 30 ml/kg IV at bolus once; Sepsis Protocol; to be given as ha1 a bolus over 90 minutes Route: IV; Rate: bolus; Site: right antecubital; 11/12 03:16 Follow up: Response: No adverse reaction; IV Status: Completed infusion; IV Intake: al5 4000ml 11/11 21:17 Drug: EPINEPHrine 0.1mg/mL 1:10,000 1 mg IVP once Route: IVP; Site: right antecubital; [facility] 11/12 03:07 Follow up: Response: No adverse reaction mn11/11 21:18 Drug: Sodium Bicarbonate 1 amp IVP once; (50 mL); equals 50 mEq Route: IVP; Site: right [facility] antecubital; 11/12 03:07 Follow up: Response: No adverse reaction 11/11 21:21 Drug: EPINEPHrine 0.1mg/mL 1:10,000 1 mg IVP once Route: IVP; Site: right antecubital; [facility] 11/12 03:07 Follow up: Response: No adverse reaction [facility] 11/11 21:30 Drug: Norepinephrine IV 0.1 mcg/kg/min IV at calculated rate See Administration ha1 Instructions; (Standard concentration 4 mg / 250 mL D5W); Recommended max rate 3 mcg/kg/min; Titrate 0.05 mcg/kg/min as often as every 5 minutes to achieve goal (see titration policy); Goal parameter MAP greater than 65 mmHg. Route: IV; Rate: calculated rate; Site: right femoral; 11/12 03:15 Follow up: Response: No adverse reaction; IV Status: Infusion continued upon transfer 11/11 21:41 Drug: EPINEPHrine 0.1mg/mL 1:10,000 1 mg IVP once Route: IVP; Site: right femoral; [facility] 11/12 03:06 Follow up: Response: No adverse reaction 11/11 21:42 Drug: Calcium Chloride IVP 1 grams IVP once Route: IVP; Site: right antecubital; [facility] 11/12 03:06 Follow up: Response: No adverse reaction 11/11 21:58 Drug: DOPamine IV (400mg/250mL Premix) 5 mcg/kg/min IV at calculated rate See ha1 Administration Instructions; Recommended max rate 20 mcg/kg/min; Titrate 2.5 mcg/kg/min as often as every 5 minutes to achieve goal (see titration policy); Goal parameter MAP greater than 65 mmHg. [*Low doses 1 to 4 mcg/kg/min may result in hypotension, decreased SVR*] Route: IV; Rate: calculated rate; Site: right femoral; 11/12 03:09 Follow up: Response: No adverse reaction 03:10 Follow up: IV Status: Infusion continued upon transfer 11/11 21:59 Drug: Sodium Bicarbonate IVP 1 amp IVP once; (50 mL); equals 50 mEq Route: IVP; Site: al right femoral; 11/12 03:14 Follow up: Response: No adverse reaction mn11/11 21:59 Drug: Sodium Bicarbonate IVP 1 amp IVP once; (50 mL); equals 50 mEq Route: IVP; Site: [facility] right femoral; 11/12 03:14 Follow up: Response: No adverse reaction mn11/11 21:59 Drug: Sodium Bicarbonate 1 amp IVP once; (50 mL); equals 50 mEq Route: IVP; Site: right ha femoral; 11/12 03:06 Follow up: Response: No adverse reaction mn11/11 22:05 Drug: D5W IV 1000 ml, Sodium Bicarbonate IVP 150 mEq IV at 125 ml/hr continuous Route: al5 IV; Rate: 125 ml/hr; Site: right antecubital; 11/12 03:10 Follow up: Response: No adverse reaction; IV Status: Infusion continued upon transfer 11/11 22:05 Drug: Sodium Bicarbonate 1 amp IVP once; (50 mL); equals 50 mEq Route: IVP; Site: right ha femoral; 11/12 03:06 Follow up: Response: No adverse reaction 11/11 22:06 Drug: Insulin Regular Human IVP 10 units IVP once {Co-Signature: ha1 (Dione Aragon RN).} Route: IVP; Site: right antecubital; 11/12 03:15 Follow up: Response: No adverse reaction; No change in condition 11/11 22:24 Drug: Phenylephrine IV 0.5 mcg/kg/min IV at calculated rate See Administration al5 Instructions; (Standard concentration 50 mg / 250 mL D5W); Recommended max rate 5 mcg/kg/min; Max rate for cardiogenic shock 10 mcg/kg/min; Titrate 0.1 mcg/kg/min as often as q5 minutes to achieve goal (see titration policy); Goal parameter MAP greater than 65 mmHg. Route: IV; Rate: calculated rate; Site: right femoral; 22:26 Follow up: Response: No adverse reaction; Blood pressure is unchanged; Rate change 2 al5 mcg/kg/min 22:40 Follow up: Response: No adverse reaction; Blood pressure is unchanged; Rate change 3 al5 mcg/kg/min 23:00 Follow up: Response: No adverse reaction; Blood pressure is unchanged; Rate change 5 al5 mcg/kg/min 11/12 03:08 Follow up: Response: No adverse reaction; IV Status: Infusion continued upon transfer 11/11 22:51 Drug: Famotidine IVP 40 mg IVP once; dilute with 10 mL 0.9% NaCl; give over 2 minutes al5 Route: IVP; Site: left antecubital; 11/12 00:43 Follow up: Response: No adverse reaction 11/11 22:51 Drug: Solu-CORTEF IVP 100 mg IVP once Route: IVP; Site: left antecubital; 11/12 00:43 Follow up: Response: No adverse reaction al5 00:16 Drug: Insulin Drip - (Insulin Regular Human IVP 100 units, NS 0.9% IV 100 ml) IV at 5 al5 units/hr continuous; Standard concentration 1unit/ml; Dose for DKA is 0.1 units/kg/hr {Co-Signature: br2 (Letha Trammell RN).} Route: IV; Rate: 5 units/hr; Site: right femoral; 03:08 Follow up: Response: No adverse reaction; IV Status: Order to discontinue infusion al5 00:54 Drug: Insulin Drip - (Insulin Regular Human IVP 100 units, NS 0.9% IV 100 ml) IV at 7 al5 units/hr continuous; Standard concentration 1unit/ml; Dose for DKA is 0.1 units/kg/hr {Co-Signature: br2 (Letha Trammell RN).} Route: IV; Rate: 7 units/hr; Site: right femoral; 03:08 Follow up: Response: No adverse reaction; IV Status: Infusion continued upon transfer al5 01:24 Not Given (Duplicate Order): insulin regular human10 units IVP once al5 01:46 Drug: Albumin IVPB 25 grams 100 ml IVPB once; (Note: Albumin 25% concentration) Volume: al5 100 ml; Route: IVPB; Site: left antecubital; 02:40 Follow up: Response: No adverse reaction; IV Status: Completed infusion; IV Intake: al5 100ml 01:57 Drug: NS 0.9% IV 1000 ml IV at 1000 ml once; to be given as a bolus over 60 minutes ha1 Route: IV; Rate: 1000 ml; Site: right antecubital; 03:07 Follow up: Response: No adverse reaction; IV Status: Completed infusion; IV Intake: al5 1000ml 03:15 Not Given (Physician Discretion): piperacillin-tazobactam3.375 grams IVPB once over 60 al5 mins; (mix in NS 100 mL) Medication: 02:57 VIS not applicable for this client. br2 Intake: 02:40 IV: 100ml; Total: 100ml. al5 03:07 IV: 1000ml; Total: 1100ml. al5 03:16 IV: 4000ml; Total: 5100ml. al5 Output: 11/11 22:00 Urine: 0ml; Gastric: 150ml (NGT); Total: 150ml. al5 11/12 00:00 Urine: 0ml; Gastric: 50ml (NGT); Total: 200ml. al5 01:49 Urine: 0ml; Gastric: 50ml (NGT); Total: 250ml. al5 Outcome: 11/11 21:24 Outcome Resuscitation successful ha1 23:58 ER care complete, transfer ordered by . jessica 11/12 02:35 Transferred by helicopter to [facility], Transfer form ha1 completed. X-rays sent w/ patient. 02:45 critical ha1 03:35 Patient left the ED. ha1 Signatures: Dispatcher [employer] EDMS Roshni Gutiérrez RN RN kl Anderson, Corey, MD MD cha Pinkerton, Shawna sp Zavala, Araceli az Ayala, Heidy, RN RN ha1 Soraida Gandhi RN RN al5 Sultan Yael sa1 Letha Trammell RN RN br2 Dione Aragon RN 1 Letha Trammell RN br2 Corrections: (The following items were deleted from the chart) 00:42 11/11 22:05 D5W IV 1000 ml, Sodium Bicarbonate IVP 150 mEq IV at 125 ml/hr in right al5 femoral al5 11/12 00:45 11/11 21:15 EPINEPHrine 1:10,000 IVP 1:10,000 1 [facility] 02:[facility] 11/11 21:30 Assisted provider with intubation using 7.5 mm ETT via oral route. ET tube 1 secured at 25cm at the teeth. Set up intubation tray. Intubated by Alke Carlton MD Placement verified by CO2 detector w/ + color change, auscultating bilateral breath sounds, End-tidal CO2 montioring CXR, Patient tolerated well. 11/12 02:21 11/11 21:26 CPR assessment: unresponsive, pupils fixed \T\ dilated, no respiratory [facility] effort, intubated, mechanical ventilation, pulses absent w/ compressions, [facility] 11/12 02:21 11/11 21:26 Cardiac rhythm is asystole [place] [id number] 11/12 02:21 11/11 21:26 Neuro: Level of Consciousness is unresponsive, [place] [id number] 11/12 02:21 11/11 21:26 Cardiovascular: Rhythm is asystole [place] [id number] 11/12 02:21 11/11 21:26 Respiratory: Airway via oral intubation [place] [id number] 11/12 02:25 11/11 21:19 Cardiovascular: Rhythm is ventricular tachycardia [place] [id number] 11/12 02:42 11/11 21:19 Cardiovascular: Rhythm is ventricular tachycardia [place] [id number] 11/12 02:56 11/11 21:37 BP 75 / 37; Pulse 89bpm; Resp 18bpm; Pulse Ox 98% ET / Ventilator FiO2 br2 100%; al5 11/12 02:58 11/11 21:24 Reassessment: PULSE CHECK [place] [id number] 11/12 03:05 11/11 21:24 Reassessment: PULSE CHECK sinus tach [place] [id number] 11/12 03:05 11/11 21:30 General: Appears obese, Behavior is unresponsive. [place] [id number] 11/12 03:05 11/11 21:30 Pain: Unable to use pain scale. Patient is unresponsive. br2 br2 11/12 03:11/11 21:30 Neuro: Level of Consciousness is unresponsive, Oriented to none Pupils are br2 Pupil Size: 5mm fixed, dilated, br2 11/12 02:11/11 21:30 Cardiovascular: Heart tones S1 S2 present Patient's skin is warm and dry. br2 Rhythm is sinus tachycardia br2 11/12 02:11/11 21:30 Respiratory: Airway via oral intubation Respiratory effort is even, br2 Respiratory pattern is symmetrical, Ventilator assessment: ET Tube: 7.0 7.5 26 cm at teeth Tidal Volume: 500 Respiratory Rate: 18 FiO2: 100%. PEEP: 5 Breath sounds are clear bilaterally. br2 11/12 02:11/11 21:30 GI: Abdomen is obese, Bowel sounds present X 4 quads. br2 br2 11/12 02:11/11 21:30 : No signs and/or symptoms were reported regarding the genitourinary br2 system. br2 11/12 02:11/11 21:30 EENT: No signs and/or symptoms were reported regarding the EENT system. br2 2 11/12 03:11/11 21:30 Derm: Skin is intact, is healthy with good turgor, Skin is normal, br2 br2 11/12 02:11/11 21:30 Musculoskeletal: No signs and/or symptoms reported regarding the br2 musculoskeletal system. br2 11/12 03:11/11 21:41 : temperature probe todd to gravity drainage, no urine output br2 2 11/12 04:11 02:40 One-on-one care X 360 minutes. br2 al5 04:14 11/11 22:00 Reassessment: No changes from previously documented assessment. al5 al5 11/12 04:17 00:00 Respiratory: Airway via oral intubation Respiratory effort is even, Respiratory al5 pattern is regular, symmetrical, al5 04:17 01:00 Respiratory: Airway via oral intubation Respiratory effort is even, Respiratory al5 pattern is regular, symmetrical, al5
[2024-11-12] MEDS ORDERED: NA CHLORIDE 0.9% 100 ML ONE
[2024-11-12] MEDS ORDERED: DOPAMINE HCL IN DEXTROSE 5 % 400 MG/250 ML KIT IV ONE ×2 (00:06→02:02)
[2024-11-12] MEDS ORDERED: Phenylephrine HCl 10 MG/ML 1 ML VIAL ONE ×3 (00:21→02:02)
[2024-11-12] MEDS ORDERED: D5W 250 ML IV ONE ×2 (00:33→02:06)
[2024-11-12 01:20] LABS: Arterial Blood Carboxyhemoglob 0.2 % (0-1.5); Blood Gas Oxyhemoglobin 94.1 % (94-97); Blood Gas THB 15.5 g/dl (12-18)
[2024-11-12] MEDS ORDERED: ALBUMIN HUMAN 25% 100 ML IV ONE (01:39)
[2024-11-12] MEDS ORDERED: NOREPINEPHRINE BITARTRATE/D5W 4 MG/250 ML KIT IV ONE (02:02)
[2024-11-12 08:01] VITALS: BP 75/40; TEMP 97; O2SAT 100
--- NOTE | 2024-11-16 12:45 | EKG ---
Test Date: 2024-11-11 Test Time: 21:27:32 [employer]oration [employer]: AF MEASUREMENT RESULTS: Intervals: Rate: 102 SD: QRSD: 108 QT: 340 QTc: 443 [place]: P: SD: QRS: 268 T: 70 INTERPRETIVE STATEMENTS: Accelerated Junctional rhythm Right bundle branch block Abnormal ECG Compared to ECG 05/18/2017 18:40:14 Accelerated junctional rhythm now present Right bundle-branch block now present Sinus rhythm no longer present First degree AV block no longer present Left-axis deviation no longer present Incomplete right bundle-branch block no longer present T-wave abnormality no longer present Possible ischemia no longer present Electronically Signed On 11-16-24 12:36:53 TILER'S ASSISTANT by Eren Zabala
== END 2024-11-12 03:35 | disposition short-term general hospital (02) ==
LOC: ER 21:10
DX: J96.01 Acute respiratory failure with hypoxia (principal); J96.02 Acute respiratory failure with hypercapnia; R65.21 Severe sepsis with septic shock; N17.9 Acute kidney failure, unspecified; E11.11 Type 2 diabetes mellitus with ketoacidosis with coma; I95.9 Hypotension, unspecified; E66.2 Morbid (severe) obesity with alveolar hypoventilation; D72.829 Elevated white blood cell count, unspecified; I10 Essential (primary) hypertension; Z11.52 Encounter for screening for COVID-19
CPT/HCPCS: 87040 ×2; 85025; 80048; 36415; 82947 ×5; 87205; 85610; 83605 ×2; 85730; 87077; 87186; 84484; 87804 ×2; 71045; 82805 ×2; 31500; 51702; 92950 ×3; 99291; 99292; 36556; 87811; 36600 ×2; 94002; 94003; J2371 ×4; J0171; J1720; P9047; J7060 ×2; J7050; J7030 ×2; 93005; J1265